=== PATIENT | female | born 1935 | race Caucasian/White ===

== ENCOUNTER 2018-02-20 10:23 | Day surgery (SDC) | payer MEDICARE, OTHER ==
[~2018-02-20 10:23] MED LIST: Acetaminophen TAB* 325 MG PO PRN; Buffered Lidocaine 0.9% SYRIN* 5 ML/SYR SYRINGE INTRADERM ONE
[2018-02-20] MEDS ORDERED: acetaZOLAMIDE TAB* 250 MG ONE (11:19)
[2018-02-20] MEDS ORDERED: Povidone Iodine 5% OPTH* 30 ML BTL ONE (11:19)
[2018-02-20] MEDS ORDERED: Lidocaine 1%* 5 ML VIAL ONE (11:19)
[2018-02-20] MEDS ORDERED: Ketorolac 0.5% OPHTH (NF) 0.5 % 5 ML BTL ONE (11:19)
[2018-02-20] MEDS ORDERED: Cyclopentolate 1% OPTH.SOL* 2 ML BTL ONE (11:19)
[2018-02-20] MEDS ORDERED: Tropicamide 1% OPTH.SOL* BTL ONE (11:19)
[2018-02-20] MEDS ORDERED: Tetracaine 0.5% OPTH.SOL 4 ML* 1 DROP BTL ONE (11:19)
[2018-02-20] MEDS ORDERED: Neomycin/Polymy/Dex OPHTH.OIN* 3.5 GM ONE (11:19)
[2018-02-20] MEDS ORDERED: Phenylephrine 2.5% OPTH.SOL* 2 ML BTL ONE (11:19)
[2018-02-20] MEDS ORDERED: Midazolam* 1 MG/ML 5 ML VIAL (5 MG) ONE (11:58)
[2018-02-20 13:19] VITALS: BP 130/63
--- NOTE | 2018-02-21 06:49 | OP ---
DATE OF OPERATION: 02/20/18 - [facility] DATE OF : 39 SURGEON: Anthony Vides MD ANESTHESIA: Monitored anesthesia care. PRE-OP DIAGNOSIS: Cataract, right eye. POST-OP DIAGNOSIS: Cataract, right eye. OPERATIVE PROCEDURE: Extracapsular cataract extraction of the right eye with intraocular lens implant. IMPLANTS: SN60WF 14.0 diopter lens to the right eye. DESCRIPTION OF PROCEDURE: The patient was given phenylephrine 2.5% and cyclopentolate 1% eye drops to the operative eye in the preoperative area. The patient was taken to the operating room where a time-out was taken to identify the correct patient, site, and side of surgery. The patient's right eye was prepped and draped in the usual sterile fashion with 5% Betadine. A second time -out was taken to verify the correct patient, site, and side of surgery and correct lens implant. A lid speculum was placed to the right eye. A 1-mm paracentesis blade was used to make a clear corneal incision in the superotemporal position. Preservative free 1% lidocaine was injected into the anterior chamber. DisCoVisc was then injected into the anterior chamber. A 2.75-mm keratome blade was used to make a triplanar incision at the inferotemporal position. A cystotome initiated a capsulorrhexis, which was completed with Utrata forceps in a continuous and curvilinear manner. Hydrodissection of the lens was performed with BSS on a cannula. The lens could be spun in the capsular bag. The phacoemulsification handpiece was used with a rxmoad-luv-lesetfd technique to remove the nucleus with 22.24 CDE. The I /A handpiece then removed the residual cortical lens material. DisCoVisc was injected to inflate the capsular bag. The planned SN60WF 14.0 diopter lens was injected into the capsular bag. The residual DisCoVisc was removed from the eye with the I/A handpiece. The corneal incisions were hydrated and no leaks occurred at physiologic pressure around 20 mmHg per palpation. The lid speculum was removed and drapes removed. Maxitrol ointment was placed on the surface of the operative eye. An adhesive patch and shield was then placed on the operative eye. The patient was taken to the postoperative area in stable condition. [id number]/[facility] #: [id number] LAURYN
== END 2018-02-20 13:19 | disposition home or self-care (01) ==
LOC: OREAST 10:23
PROVIDERS: ATTEND Student in an Organized Health Care Education/Training Program
DX: H25.811 Combined forms of age-related cataract, right eye (principal); H35.3131 Nonexudative age-related macular degeneration, bilateral, early dry stage; E78.5 Hyperlipidemia, unspecified; M81.0 Age-related osteoporosis without current pathological fracture; K21.9 Gastro-esophageal reflux disease without esophagitis; R00.2 Palpitations; I38 Endocarditis, valve unspecified; I10 Essential (primary) hypertension; I49.3 Ventricular premature depolarization; R13.10 Dysphagia, unspecified
CPT/HCPCS: A9270-GY; J2250; V2632

== ENCOUNTER 2018-02-27 06:57 | Day surgery (SDC) | payer MEDICARE, OTHER ==
[2018-02-27] MEDS ORDERED: Midazolam* 1 MG/ML 2 ML VIAL (2 MG) ONE ×2 (08:05→08:22)
[2018-02-27 08:56] VITALS: BP 100/62
--- NOTE | 2018-02-27 11:23 | OP ---
DATE OF OPERATION: 02/27/18 - [facility] DATE OF : 39 SURGEON: Anthony Vides MD ANESTHESIA: Monitored anesthesia care. PRE-OP DIAGNOSIS: Cataract, left eye. POST-OP DIAGNOSIS: Cataract, left eye. OPERATIVE PROCEDURE: Extracapsular cataract extraction of the left eye with intraocular lens implant. IMPLANTS: SN60WF 12.0 Diopter lens to the left eye. COMPLICATIONS: None. DESCRIPTION OF PROCEDURE: The patient was given phenylephrine 2.5% and cyclopentolate 1% eyedrops to the operative eye in the preoperative area. The patient was taken to the operating room where a time-out was taken to identify the correct patient, site and side of surgery. The patient's left eye was prepped and draped in the usual sterile fashion with 5% Betadine. A second time -out was taken to verify the correct patient, site and side of the surgery, and correct lens implant. A lid speculum was placed to the left eye. A 1 mm paracentesis blade was used to make a clear corneal incision in the inferotemporal position. Preservative free 1% lidocaine was injected into the anterior chamber. DisCoVisc was then injected into the anterior chamber. A 2.75 mm keratome blade was used to make a triplanar incision at the superotemporal position. A cystotome initiated a capsulorrhexis which was completed with Utrata forceps in a continuous and curvilinear manner. Hydrodissection of the lens was performed with BSS on a cannula. The lens could be spun in the capsular bag. The phacoemulsification handpiece was used with a divide and conquer technique to remove the nucleus with 22.01 CDE. The I /A handpiece then removed the residual cortical lens material. DisCoVisc was injected to inflate the capsular bag. The planned SN60WF 12.0 Diopter lens was injected into the capsular bag. The residual DisCoVisc was removed from the eye with the I/A handpiece. The corneal incisions were hydrated and no leaks occurred at physiologic pressure around 20 mmHg per palpation. The lid speculum was removed and drapes removed. Maxitrol ointment was placed to the surface of the operative eye. An adhesive patch and shield was then placed on the operative eye. The patient was taken to the postoperative area in stable condition. [id number]/[facility] #: [id number] [facility] SYSTEM[facility]enny
[2018-02-27] MEDS ORDERED: Tropicamide 1% OPTH.SOL* BTL ONE (13:56)
[2018-02-27] MEDS ORDERED: acetaZOLAMIDE TAB* 250 MG ONE (13:56)
[2018-02-27] MEDS ORDERED: Tetracaine 0.5% OPTH.SOL 4 ML* 1 DROP BTL ONE (13:56)
[2018-02-27] MEDS ORDERED: Neomycin/Polymy/Dex OPHTH.OIN* 3.5 GM ONE (13:56)
[2018-02-27] MEDS ORDERED: Phenylephrine 2.5% OPTH.SOL* 2 ML BTL ONE (13:56)
[2018-02-27] MEDS ORDERED: Ketorolac 0.5% OPHTH (NF) 0.5 % 5 ML BTL ONE (13:56)
[2018-02-27] MEDS ORDERED: Cyclopentolate 1% OPTH.SOL* 2 ML BTL ONE (13:56)
[2018-02-27] MEDS ORDERED: Lidocaine 1%* 5 ML VIAL ONE (13:56)
[2018-02-27] MEDS ORDERED: Povidone Iodine 5% OPTH* 30 ML BTL ONE (13:56)
== END 2018-02-27 09:10 | disposition home or self-care (01) ==
LOC: OREAST 06:57
PROVIDERS: ATTEND Student in an Organized Health Care Education/Training Program
DX: H25.812 Combined forms of age-related cataract, left eye (principal); H35.3131 Nonexudative age-related macular degeneration, bilateral, early dry stage; E78.5 Hyperlipidemia, unspecified; I10 Essential (primary) hypertension; K21.9 Gastro-esophageal reflux disease without esophagitis; R13.10 Dysphagia, unspecified; M81.0 Age-related osteoporosis without current pathological fracture
CPT/HCPCS: A9270-GY; J2250; V2632

== ENCOUNTER 2018-11-13 14:30 | Emergency (ER) | payer MEDICARE, OTHER ==
[2018-11-13] MEDS ORDERED: Ibuprofen TAB* 600 MG PO ONE (15:33)
[2018-11-13 16:44] VITALS: BP 123/69
--- NOTE | 2018-11-28 06:29 | ED ---
Head Injury - HPI Summary HPI Summary: Patient is a 89-year-old female presenting to the ED with stiff neck after a fall on Tuesday. She states immediately following the fall, she did not feel immediate neck pain, however over the past 2 days stiffness has been worsening. She is also endorsing a frontal headache which is nonradiating. She does not take anticoagulation medications. She remained ambulatory immediately following the accident and typically ambulates well at baseline. She denies any assistive devices. Family member is at bedside. - History Of Current Complaint Chief Complaint: EDNeckComplaint Stated Complaint: FALL INJURY Time Seen by Provider: 11/13/18 15:20 Hx Obtained From: Patient Mechanism Of Injury: Direct Blow Onset/Duration: Started Hours Ago Onset of Pain: Minutes Severity Currently: Moderate Severity Initially: Mild Pain Intensity: 9 Pain Scale Used: 0-10 Numeric Location of Head Injury: Other: - neck pain Character: Dull - band-like, Pressure Aggravating Factor(s): Movement Alleviating Factor(s): Rest Associated Signs And Symptoms: Neck Pain, Headache - Risk Factors SDH Risk Factor: Negative - Allergies/Home Medications Allergies/Adverse Reactions: Allergies Allergy/AdvReac Type Severity Reaction Status Date / Time alendronate sodium Allergy Severe Hives Verified 11/13/18 14:57 [From Fosamax] PMH/Surg Hx/FS Hx/Imm Hx Previously Healthy: Yes Endocrine/Hematology History: Denies: Hx Diabetes, Hx Thyroid Disease Cardiovascular History: Reports: Hx Hypertension, Hx Valvular Heart Disease - valve abnormalaties Respiratory History: Denies: Hx Asthma, Hx Chronic Obstructive Pulmonary Disease (COPD) GI History: Reports: Hx Gastroesophageal Reflux Disease - takes lucio seltzer chews prn, Other GI Disorders - has some swallowing problems r/t indigestion Denies: Hx Ulcer Musculoskeletal History: Reports: Hx Arthritis - mainly hands, Other Musculoskeletal History - osteoporosis Denies: Hx Osteoporosis, Hx Scoliosis Sensory History: Reports: Hx Cataracts - both eyes, Hx Contacts or Glasses - glasses Denies: Hx Hearing Aid Opthamlomology History: Reports: Hx Cataracts - both eyes, Hx Contacts or Glasses - glasses Neurological History: Reports: Hx Headaches - at night- positional from neck- rare headaches - Cancer History Hx Chemotherapy: No Hx Radiation Therapy: No - Surgical History Surgery Procedure, Year, and Place: appendectomy; tubal ligation Hx Anesthesia Reactions: No - Immunization History Hx Pertussis Vaccination: No Immunizations Up to Date: Yes Infectious Disease History: No Infectious Disease History: Denies: Hx Hepatitis, Hx Human Immunodeficiency Virus (HIV), Traveled Outside the [place] in Last 30 Days - Social History Occupation: Unemployed Lives: With Family Alcohol Use: Daily Alcohol Amount: 1 glass of wine before dinner Hx Substance Use: No Substance Use Type: Reports: None Hx Tobacco Use: No Smoking Status (MU): Never Smoked Tobacco Review of Systems Negative: Fever, Chills, Fatigue, Skin Diaphoresis Negative: Photophobia, Blurred Vision, Diplopia, Drainage, Erythema Negative: Palpitations, Chest Pain Negative: Shortness Of Breath, Cough Negative: Vomiting, Diarrhea, Nausea Genitourinary: Negative Positive: no symptoms reported, see HPI Positive: Myalgia - bilateral neck pain Negative: Bruising Positive: Headache All Other Systems Reviewed And Are Negative: Yes Physical Exam Triage Information Reviewed: Yes Vital Signs On Initial Exam: Initial Vitals Temp Pulse Resp BP Pulse Ox 99.8 F 71 16 162/98 97 11/13/18 14:51 11/13/18 14:51 11/13/18 14:51 11/13/18 14:51 11/13/18 14:51 Vital Signs Reviewed: Yes Appearance: Positive: Well-Appearing, Well-Nourished Skin: Positive: Skin Color Reflects Adequate Perfusion Head/Face: Positive: Normal Head/Face Inspection Eyes: Positive: EOMI, CORAZON, Conjunctiva Clear Neck: Positive: Supple, Other: - neck pain - located bilaterally Respiratory/Lung Sounds: Positive: Clear to Auscultation, Breath Sounds Present Cardiovascular: Positive: RRR, Pulses are Symmetrical in both Upper and Lower Extremities Musculoskeletal: Positive: Normal, Strength/ROM Intact Neurological: Positive: Sensory/Motor Intact, Alert, Oriented to Person Place, Time, CN Intact II-III, Reflexes Intact, Normal Gait, Speech Normal Psychiatric: Positive: Normal, Affect/Mood Appropriate Diagnostics - Vital Signs Vital Signs Temp Pulse Resp BP Pulse Ox 11/13/18 16:43 99 F 65 16 123/69 96 11/13/18 14:51 99.8 F 71 16 162/98 97 - Laboratory Lab Statement: Any lab studies that have been ordered have been reviewed, and results considered in the medical decision making process. Head Injury Course/Dx Course Of Treatment: Patient is evaluated for head injury and neck pain after a fall 2 days ago. She states she was able to ambulate following the accident, however isn't worsening worsening neck pain. She does endorse an intermittent headache, however this is mild rated a 2/10. She denies anticoagulation medications. CT brain and CT cervical spine obtained all of which were read as negative for any acute findings fractures. Ibuprofen 6 her milligrams given in the ED. She states this with good effect. She denies any confusion, memory loss or visual changes. On physical examination, patient has tenderness to the sternoclediomastoids bilaterally without pain directly onto the cervical spine. No pain to the thoracic or lumbar spine. No step-off noted. Discussed findings with patient. Patient declines any muscle relaxers and states she will take ibuprofen for relief. I've given her care instructions including heat. She will follow-up with her doctor or return to the ED if she has any worsening or changing symptoms. - Diagnoses Provider Diagnoses: Cervical strain, Head injury Discharge - Sign-Out/Discharge Documenting (check all that apply): Patient Departure Patient Received Moderate/Deep Sedation with Procedure: No - Discharge Plan Condition: Stable Disposition: HOME Patient Education Materials: Cervical Strain (ED) Referrals: Yasmine Simpson MD [Primary Care Provider] - Additional Instructions: Ibuprofen 600mg three times daily for discomfort Eat something while taking this medication Moist heat to the neck as much as possible Gently movements/stretches to avoid stiffness. - Billing Disposition and Condition Condition: STABLE Disposition: Home
== END 2018-11-13 16:43 | disposition home or self-care (01) ==
LOC: ED 14:30
DX: S16.1XXA Strain of muscle, fascia and tendon at neck level, initial encounter (principal); S09.90XA Unspecified injury of head, initial encounter; I10 Essential (primary) hypertension; K21.9 Gastro-esophageal reflux disease without esophagitis; W19.XXXA Unspecified fall, initial encounter; Y92.9 Unspecified place or not applicable
CPT/HCPCS: 70450; 72125; 99282; A9270-GY